=== PATIENT | female | born 1960 | race African-American/Black ===

== ENCOUNTER 2018-03-10 14:48 | Emergency (ER) | payer OTHER ==
[~2018-03-10] VITALS: Ht 180.3 cm; Wt 93.2 kg
[~2018-03-10 14:48] MED LIST: NOCURR
[2018-03-10] MEDS ORDERED: FOLI0.4T4 PO (14:57)
[2018-03-10] MEDS ORDERED: ATEN25TA PO (14:57)
[2018-03-10] MEDS ORDERED: BUPIVACAINE HCL/PF 0.25% 10 ML VIAL INJ ONE (17:15)
[2018-03-10] MEDS ORDERED: IBUPROFEN 800 MG TABLET PO ONE (17:15)
[2018-03-10] MEDS ORDERED: CEPHALEXIN MONOHYDRATE 500 MG CAPSULE PO ONE (17:15)
[2018-03-10] MEDS ORDERED: POVIDONE-IODINE 10% 15 ML SOLUTION UD TP ONE (17:15)
[2018-03-10] MEDS ORDERED: SULFAMETHOX/TRIMETH DS 800-160 MG/TABLET PO ONE (17:15)
[2018-03-10 19:12] VITALS: BP 132/71
== END 2018-03-10 19:15 | disposition home or self-care (01) ==
LOC: EMS 14:49
DX: L02.212 Cutaneous abscess of back [any part, except buttock and flank] (principal); L03.312 Cellulitis of back [any part except buttock and flank]; F17.210 Nicotine dependence, cigarettes, uncomplicated; Z79.899 Other long term (current) drug therapy
CPT/HCPCS: 10060; 99284; 99406; J3490

== ENCOUNTER 2023-01-25 15:45 | Emergency (ER) | payer OTHER ==
[~2023-01-25] VITALS: Ht 180.3 cm; Wt 106.8 kg
[~2023-01-25 15:45] MED LIST changes: +ATEN-73 PO; +FOLI0.4T6 PO; -NOCURR
[2023-01-25] MEDS ORDERED: FOLI-130 PO (15:56)
[2023-01-25] MEDS ORDERED: CYAN500T56 PO (15:56)
[2023-01-25] MEDS ORDERED: GABA600T10 PO (15:56)
[2023-01-25] MEDS ORDERED: CALC-1271 PO (15:56)
[2023-01-25] MEDS ORDERED: AMLO2.5T29 PO (15:56)
[2023-01-25] MEDS ORDERED: BACL10TA PO (15:56)
[2023-01-25 17:14] LABS: BASOPHILS % (AUTO) 0.9 % (0.0-2.0); EOSINOPHILS % (AUTO) 5.1 % (1.0-6.0); HEMATOCRIT 43.1 % (36-46); HEMOGLOBIN 13.4 g/dL (12.0-16.0); LYMPHOCYTES # (AUTO) 2.6 K/uL (1.0-4.8); LYMPHOCYTES % (AUTO) 24.3 % (22.0-44.0); MEAN CORPUSCULAR HEMOGLOBIN 22.5 pg (26.0-34.0); MEAN CORPUSCULAR HGB CONC 31.2 G/dL (31.0-37.0); MEAN CORPUSCULAR VOLUME 72 fL (80-100); MONOCYTES # (AUTO) 0.7 K/uL (0.1-1.0); MONOCYTES % (AUTO) 6.5 % (2.0-9.0); NEUTROPHILS # (AUTO) 6.7 K/uL (1.8-7.7); NEUTROPHILS % (AUTO) 63.2 % (40.0-70.0); PLATELET COUNT (AUTO) 250 K/uL (150-450); RED BLOOD CELL COUNT(AUTO) 5.98 MIL/uL (4.00-5.20); RED CELL DISTRIBUTION WIDTH 17.5 % (11.5-14.5)
[2023-01-25 17:23] LABS: CREATININE 1.32 mg/dL (0.60-1.30); POTASSIUM 3.8 mmol/L (3.5-5.1)
[2023-01-25 17:29] LABS: BILIRUBIN,TOTAL 0.3 mg/dL (0.1-1.0); TOTAL PROTEIN, SERUM 6.5 g/dL (6.4-8.2)
[2023-01-25 17:35] LABS: INR 0.9 (0.9-1.1); PROTHROMBIN TIME 9.9 SEC (9.4-11.6)
[2023-01-25 19:37] LABS: APPEARANCE,URINE CLEAR (CLEAR); BILIRUBIN,URINE NEGATIVE (NEGATIVE); GLUCOSE, URINE (UA) NEGATIVE (NEGATIVE); KETONES,URINE NEGATIVE (NEGATIVE); LEUKOCYTE ESTERASE ,URINE NEGATIVE (NEGATIVE); NITRATE,URINE NEGATIVE (NEGATIVE); OCCULT BLOOD,URINE NEGATIVE (NEGATIVE); PROTEIN,URINE NEGATIVE (NEGATIVE); SPECIFIC GRAVITIY, URINE 1.012 (1.003-1.030); UROBILINOGEN,URINE <=1.0 mg/dL (<=1.0)
[2023-01-25] MEDS ORDERED: ASPIRIN 325 MG TABLET PO ONE (21:00)
[2023-01-25 21:23] VITALS: BP 130/73
== END 2023-01-25 21:30 | disposition left against medical advice (07) ==
LOC: EMS 15:46
DX: R20.0 Anesthesia of skin (principal); R20.2 Paresthesia of skin; F17.210 Nicotine dependence, cigarettes, uncomplicated; M19.90 Unspecified osteoarthritis, unspecified site; I10 Essential (primary) hypertension
CPT/HCPCS: 70450; 80053; 81003; 84484; 85025; 85610; 85730; 93005; 99285